=== PATIENT | female | born 1950 | race Hispanic/Latino ===

== ENCOUNTER 2018-09-09 20:05 | Emergency (ER) | payer MEDICARE ==
--- NOTE | 2018-09-09 21:12 | RAD ---
PORTABLE UPRIGHT FRONTAL CHEST RADIOGRAPH 09/09/18 COMPARISON: 09/25/16 HISTORY: Chest pain and palpitations. FINDINGS: Postoperative ankles overlie bilateral humeral heads. No pneumothorax, pleural fluid, focal consolida tion, or alveolar edema. IMPRESSION: No acute findings. POS: OLIVERH
[2018-09-09 21:13] LABS: Hemoglobin 15.5 g/dL (12.0-16.0); Mean Corpuscular HGB CONC 33.6 g/dL (32.0-36.0); Mean Corpuscular Hemoglobin 35.1 pg (27.0-31.0); Mean Platelet Volume 7.6 fL (7.4-10.4); Platelet Count 187 thou/uL (130-400); RBC Distribution Width 11.7 % (11.5-14.5); Red Blood Cell (RBC) Count 4.42 mill/uL (4.20-5.40); White Blood Cell (WBC) Count 7.9 thou/uL (4.8-10.8)
[2018-09-09 21:25] LABS: #Basophils 0.1 thou/uL (0.0-0.2); #Eosinphils 0.1 thou/uL (0.0-0.7); #Lymphocytes 2.7 thou/uL (1.20-3.40); #Monocytes 0.7 thou/uL (0.11-0.59); #Neutrophils 4.3 thou/uL (1.40-6.50); %Basophils 1.3 % (0.0-1.0); %Eosinophils 1.2 % (0.0-10.0); %Lymphocytes 33.9 % (21.0-51.0); %Monocytes 9.4 % (0.0-10.0); %Neutrophils 54.3 % (42.0-75.0)
[2018-09-09 21:32] LABS: ALT (SGPT) 68 U/L (8-55); AST (SGOT) 39 U/L (5-34); Albumin 4.1 g/dL (3.4-4.8); Alkaline Phosphatase 85 U/L (40-150); Anion Gap 14 mmol/L (10-20); BUN (Urea Nitrogen) 9 mg/dL (9.8-20.1); Bilirubin, Total 0.4 mg/dL (0.2-1.2); CK (CPK) 112 U/L (29-168); Calc. Creatinine Clearance 0 mL/min (70-130); Calcium 9.3 mg/dL (7.8-10.44); Carbon Dioxide 23 mmol/L (23-31); Chloride 106 mmol/L (98-107); Estimated GFR-MDRD 80; Globulin 2.9 g/dL (2.4-3.5); Glucose 92 mg/dL (80-115); Potassium 3.3 mmol/L (3.5-5.1); Sodium 140 mmol/L (136-145)
== END 2018-09-09 22:31 | disposition home or self-care (01) ==
LOC: ERS 20:05
DX: I10 Essential (primary) hypertension (principal)
CPT/HCPCS: 36415; 71045; 80053; 82550; 83880; 84443; 84484; 85025; 85379; 93005

== ENCOUNTER 2020-01-22 05:04 | Observation (INO) | payer MEDICARE ==
[2020-01-22 05:43] LABS: #Basophils 0.1 thou/uL (0.0-0.2); #Lymphocytes 1.3 thou/uL (1.20-3.40); #Monocytes 0.2 thou/uL (0.11-0.59); #Neutrophils 4.5 thou/uL (1.40-6.50); %Eosinophils 0.6 % (0.0-10.0); %Lymphocytes 21.2 % (21.0-51.0); %Monocytes 3.5 % (0.0-10.0); %Neutrophils 73.8 % (42.0-75.0); Mean Corpuscular Hemoglobin 34.6 pg (27.0-31.0); Mean Platelet Volume 8.2 fL (7.4-10.4); Platelet Count 177 thou/uL (130-400); RBC Distribution Width 12.2 % (11.5-14.5); Red Blood Cell (RBC) Count 4.62 mill/uL (4.20-5.40); White Blood Cell (WBC) Count 6.1 thou/uL (4.8-10.8)
[2020-01-22 06:05] LABS: ALT (SGPT) 59 U/L (8-55); AST (SGOT) 42 U/L (5-34); Albumin 4.5 g/dL (3.4-4.8); Alkaline Phosphatase 88 U/L (40-110); Anion Gap 14 mmol/L (10-20); BUN (Urea Nitrogen) 9 mg/dL (9.8-20.1); Bilirubin, Total 0.5 mg/dL (0.2-1.2); Calc. Creatinine Clearance 0 mL/min (70-130); Calcium 9.1 mg/dL (7.8-10.44); Carbon Dioxide 27 mmol/L (23-31); Chloride 104 mmol/L (98-107); Estimated GFR-MDRD 83; Glucose 135 mg/dL (80-115); Lipase 31 U/L (8-78); Protein, Total 7.5 g/dL (6.0-8.3); Sodium 141 mmol/L (136-145)
[2020-01-22] MEDS ORDERED: Morphine 4 MG/ML VIAL ONE (06:12)
[2020-01-22] MEDS ORDERED: Ondansetron ODT 4 MG TAB ONE (06:13)
[2020-01-22] MEDS ORDERED: Aspirin Chewable 81 MG TAB ONE (06:13)
[2020-01-22] MEDS ORDERED: Nitroglycerin 2% Ointment 1 INCH/1 GM Packet ONE (06:13)
--- NOTE | 2020-01-22 08:07 | RAD ---
RADIOGRAPH CHEST 1 VIEW: DATE: 01/22/2020 HISTORY: 69-year-old female with acute chest pain FINDINGS: There are no airspace densities, pulmonary edema, pneumothorax, or cardiomegaly. The lateral costophr enic angles are sharp. IMPRESSION: No acute cardiopulmonary findings.
[2020-01-22 09:02] LABS: Troponin I 0.017 ng/mL (< 0.028)
[2020-01-22] MEDS ORDERED: Enoxaparin Sodium 40 MG/0.4 ML SYRINGE SC SCH (10:30)
[2020-01-22] MEDS ORDERED: Morphine 2 MG/ML SYRINGE SLOW IVP PRN (11:18)
[2020-01-22 11:44] VITALS: BMI 36.0
[2020-01-22 12:27] LABS: Troponin I 0.022 ng/mL (< 0.028)
[2020-01-22] MEDS ORDERED: Nitroglycerin 0.4 MG TAB (25 Tab Bottle) PO PRN (12:43)
[2020-01-22] MEDS ORDERED: Acetaminophen 325 MG TAB PO PRN (12:45)
[2020-01-22 14:04] LABS: Hemoglobin A1c 5.8 % (4.0-6.0)
[2020-01-22] MEDS: Nitroglycerin 2% Ointment 1 INCH/1 GM Packet TOP SCH ×2 (14:04→21:06)
--- NOTE | 2020-01-22 14:16 | HP ---
PRIMARY CARE PHYSICIAN: Dr. Villasenor. CHIEF COMPLAINT: Chest pain, nausea, and vomiting. HISTORY OF PRESENT ILLNESS: The patient is a 69-year-old female with a past medical history significant for chronic back pain and obesity, who presents to the ER for the above-noted complaint. The patient reports mowing her yard late in the afternoon yesterday, coming inside, eating dinner, then developing the sudden onset of nausea at about 2100 hours after eating, so she went to lay down to see if the nausea would resolve. She later awoke approximately 2 hours later at 2330 hours with progressively worsening nausea with some vomiting. She reports that she vomited several times and she had some dry heaving. She also reports developing acute onset of right-sided chest pain. She describes it as stabbing and sharp, and constant. It was exacerbated with movements, relieved by nothing. No other associated symptoms. She denies heart palpitations and lightheadedness, or swelling to lower extremities. She denies any shortness of breath, wheezing or cough. She remained in bed for several hours, hoping that the chest pain would resolve. Ultimately, at 0400 hours, her sister woke up, whom she lives with, and decided to take her into the emergency room. In the emergency room, an EKG showed sinus rhythm with some PACs, no ST elevations. Vital signs were stable. Afebrile, no respiratory distress. Initial troponin was 0.21 the second was 0.017. Chest x-ray was negative. Her D-dimer was less than 0.27. All of her electrolytes were within normal limits and her CBC was unremarkable. She was given an inch of nitroglycerin paste and a full dose of aspirin, morphine and Zofran, and her symptoms resolved. ALLERGIES: THE PATIENT REPORTS NO KNOWN ALLERGIES. HOME MEDICATIONS: The patient takes no home medications. PAST SURGICAL HISTORY: 1. Right rotator cuff. 2. Left rotator cuff. 3. Hysterectomy. SOCIAL HISTORY: The patient lives with her sister in [place]. She is retired. She denies any history of smoking, illicit drug use or alcohol intake. FAMILY HISTORY: The patient reports a family history positive for atrial fibrillation and angina. REVIEW OF SYSTEMS: All review of systems are negative unless otherwise noted in the HPI. PHYSICAL EXAMINATION: VITAL SIGNS: Temperature 98.5, blood pressure 148/72, pulse 81, respirations 17 , and SpO2 96 on room air. Pain was 10/10. CONSTITUTIONAL: The patient is alert and oriented to person, place, and time. She is in no acute distress. She appears nontoxic. She is obese in nature. HEAD: Atraumatic and normocephalic. EYES: PERRLA. Extraocular muscles intact. Sclerae nonicteric. ENT: Bilateral nares patent. Oropharynx is clear. Moist mucous membranes. Uvula is midline. NECK: Supple. Trachea midline. No JVD. RESPIRATORY: Respirations are even and nonlabored on room air. No wheezes, rhonchi or rales. CARDIOVASCULAR: S1 and S2 appreciated. Regular rate and rhythm. No murmurs, rubs or gallops. ABDOMEN: Abdomen is soft and nontender. Active bowel sounds. No guarding. No rigidity. Negative Waller sign. BACK: Full range of motion. No central spinous tenderness. No CVA tenderness. EXTREMITIES: Upper extremities bilaterally, full range of motion. Strength within normal limits. Palpable radial and ulnar pulses. Brisk cap refill. No swelling. Lower extremities; full range of motion. Strength 5/5 in the power scale. No swelling. Palpable pedal pulses and brisk cap refill. NEUROLOGIC: The patient has GCS of 15, able to follow commands. Oriented to person, place, and time. PSYCHIATRIC: The patient has no psychiatric history. Denies any suicidal or homicidal ideation. She has normal affect. LABS AND IMAGING: EKG was sinus rhythm with PACs. Chest x-ray was negative. D-dimer was then less than 0.27. Initial trops were 0.21 and 0.017 respectively. Sodium 141, potassium 4.0, BUN 9, creatinine 0.70, GFR of 83, and glucose was elevated at 135. White blood cells were 6.1, hemoglobin was 16, hematocrit was 47, platelets were 177. IMPRESSION AND PLAN: 1. Chest pain. We will admit the patient to telemetry for observation status. Expected length of stay is less than 2 midnights. The patient's HEART score is 4. Initial trops were negative. Chest x-ray was negative with a D-dimer of less than 0.27. Electrolytes were unremarkable. CBC was unremarkable. Pain was resolved upon examination. We will keep the patient n.p.o. The plan is to order a cardiac stress test with echo. We will trend the remaining troponin out. We will order a TSH, mag, BNP, and check a urine. We will continue aspirin and nitroglycerin paste as well as Zofran p.r.n. We will also obtain a gallbladder ultrasound. 2. Nausea and vomiting. The patient's symptoms are currently resolved. LFTs and lipase were unremarkable. She is in no acute distress. Physical exam was unremarkable for any abdominal pathology. We will schedule Pepcid. We will obtain a right upper quadrant ultrasound. 3. Elevated blood glucose. Blood sugar was 135 on presentation. We will order hemoglobin A1c. 4. Chronic back pain, stable. We will administer p.r.n. medications as needed. 5. Obesity with a BMI of 36.1. 6. We will consult walking program, Lovenox for DVT prophylaxis, Pepcid for GI prophylaxis. The patient is a full code. The MPOA is her son at [employer]. His number is [phone]. Discussed the case with Dr. Hernandez. Job ID: [id number] MTDD
[2020-01-22] MEDS ORDERED: Ondansetron PF 4 MG/2 ML Vial IVP PRN (15:19)
[2020-01-22] MEDS: Famotidine 20 MG TAB PO SCH (21:05)
[2020-01-23 03:33] VITALS: TEMP 98.4
[2020-01-23 04:29] LABS: #Basophils 0.1 thou/uL (0.0-0.2); #Eosinphils 0.1 thou/uL (0.0-0.7); #Lymphocytes 2.3 thou/uL (1.20-3.40); #Monocytes 0.5 thou/uL (0.11-0.59); #Neutrophils 2.8 thou/uL (1.40-6.50); %Basophils 1.6 % (0.0-1.0); %Eosinophils 1.8 % (0.0-10.0); %Lymphocytes 39.8 % (21.0-51.0); %Monocytes 8.3 % (0.0-10.0); %Neutrophils 48.5 % (42.0-75.0); Mean Corpuscular HGB CONC 33.6 g/dL (32.0-36.0); Mean Corpuscular Hemoglobin 34.4 pg (27.0-31.0); Mean Platelet Volume 8.3 fL (7.4-10.4); Platelet Count 169 thou/uL (130-400); RBC Distribution Width 12.5 % (11.5-14.5); Red Blood Cell (RBC) Count 4.36 mill/uL (4.20-5.40); White Blood Cell (WBC) Count 5.8 thou/uL (4.8-10.8)
[2020-01-23 04:51] LABS: Anion Gap 11 mmol/L (10-20); BUN (Urea Nitrogen) 8 mg/dL (9.8-20.1); Calc. Creatinine Clearance 108 mL/min (70-130); Calcium 8.8 mg/dL (7.8-10.44); Carbon Dioxide 28 mmol/L (23-31); Cardiac Risk 2.6 (Less than 4.5); Chloride 104 mmol/L (98-107); Cholesterol 150 mg/dl (< 200 Desired); Estimated GFR-MDRD Greater than 90; Glucose 104 mg/dL (80-115); HDL Cholesterol 58 mg/dL (>60 Neg Risk); LDL Cholesterol, Calculated 71 mg/dL; Potassium 3.4 mmol/L (3.5-5.1); Sodium 140 mmol/L (136-145); Triglycerides 106 mg/dL (Less than 150)
[2020-01-23] MEDS: Nitroglycerin 2% Ointment 1 INCH/1 GM Packet TOP SCH (05:55)
[2020-01-23] MEDS ORDERED: Potassium Chloride 20 MEQ TAB PO SCH (07:00)
[2020-01-23] MEDS: Famotidine 20 MG TAB PO SCH (08:07)
--- NOTE | 2020-01-23 08:34 | ULT ---
GALLBLADDER ULTRASOUND: Date: 01/23/2020 HISTORY: Right upper quadrant pain. FINDINGS: Real-time imaging of the right upper quadrant shows a normal appearing gallbladder. The common duct i s in the 5 mm range. The liver shows no focal abnormalities. There is slight increased echogenicity. Right kidney is normal in size and not obstructed. The pancreas is obscured. IMPRESSION: Essentially unremarkable right upper quadrant ultrasound. Suggestion of perhaps some slight fatty madhav nge to the liver. POS: [facility]DI
[2020-01-23] MEDS ORDERED: Enoxaparin Sodium 40 MG/0.4 ML SYRINGE SC SCH (09:00)
[2020-01-23] MEDS ORDERED: Aspirin 325 mg Enteric Coated Tablet PO SCH ×2 (09:00)
[2020-01-23] MEDS ORDERED: Aspirin 81 mg Enteric Coated Tablet PO SCH (09:00)
[2020-01-23] MEDS ORDERED: ADENOSINE 60 MG/20 ML VIAL ONE (09:59)
--- NOTE | 2020-01-23 11:13 | NM ---
MYOCARDIAL PERFUSION SCAN WITH SPECT IMAGING: HISTORY: Chest pain. History of hypertension. TECHNIQUE/FINDINGS: Examination performed using 32.8 mCi 99m-technetium sestamibi on the stress and 27 mCi on the resting images. This shows a fairly normal distribution of radiopharmaceutical. No signs of ischemia or scar . WALL MOTION: There is symmetric contractility to the ventricle. LEFT VENTRICULAR EJECTION FRACTION: The calculated left ventricular ejection fraction is 75%. IMPRESSION: Unremarkable myocardial perfusion scan. POS: [facility]
[2020-01-23 11:53] LABS: RBC/HPF Greater than 50 HPF (0-3)
[2020-01-23 11:55] LABS: WBC/HPF 0-3 HPF (0-3)
[2020-01-23 11:56] LABS: Bacteria/HPF None Seen HPF (None Seen)
[2020-01-23 12:07] VITALS: BP 125/61
--- NOTE | 2020-01-23 19:23 | DIS ---
DATE OF ADMISSION: 01/22/2020 DATE OF DISCHARGE: 01/23/2020 CHIEF COMPLAINT: Sharp atypical chest pain. HISTORY OF PRESENT ILLNESS: The patient is a 69-year-old female with no significant medical history, who presents to the hospital with complaints of sharp chest pain x1 day. The patient was admitted in for chest pain rule out. Her D-dimer was normal. Her troponin x3 was normal. Her BNP was normal. At this time, she underwent a stress test, which indicated EF of 75%, unremarkable otherwise stress test. She also had an abdominal ultrasound, which indicated fatty liver and I have notified her about that. I have asked her to try and control it with diet, exercise, and weight loss. She also had an echocardiogram, which indicated an EF 50% to 55%, otherwise essentially normal, just some moderate aortic regurgitation noted. However, the patient does not have any shortness of breath. PHYSICAL EXAMINATION: VITAL SIGNS: Temperature 98.4, pulse 78, respiratory rate 16, oxygen saturation 95% on room air, and blood pressure 125/61. GENERAL: She is awake, alert, and oriented x3. Does not appear in distress. CV: S1 and S2 with no murmurs, rubs, or gallops. MEDICATIONS: She takes none. I have told her to follow up with her primary. I discussed all the results with her. Discussed that she needs to try and lose weight, diet, and exercise for fatty liver and will need to follow up with her primary care in regard to that. Job ID: [id number]
== END 2020-01-23 12:25 | disposition home or self-care (01) ==
LOC: ERS 05:04 → 2NO 11:15
PROVIDERS: ADMIT Internal Medicine; ATTEND Internal Medicine
DX: R07.89 Other chest pain (principal); R11.2 Nausea with vomiting, unspecified; G89.29 Other chronic pain; M54.9 Dorsalgia, unspecified; R73.9 Hyperglycemia, unspecified; R10.11 Right upper quadrant pain; I35.1 Nonrheumatic aortic (valve) insufficiency; E66.9 Obesity, unspecified; Z68.36 Body mass index [BMI] 36.0-36.9, adult
CPT/HCPCS: 71045; 76705; 78452; 80048; 80061; 81015; 83036; 83690; 83735; 83880; 84484 ×2; 85025; 85379; 93005; 93017; 93306; 94760 ×2; 96372 ×2; 96374; 96375; 96376; 97139 ×2; 99285; A9500; G0378 ×3; 36415; 80053; 84443; J0153; J1650; J2270; J2405; Q0162

== ENCOUNTER 2020-01-28 15:35 | Observation (INO) | payer MEDICARE ==
[2020-01-28 16:30] LABS: #Lymphocytes 1.1 thou/uL (1.20-3.40); #Monocytes 0.2 thou/uL (0.11-0.59); %Basophils 0.7 % (0.0-1.0); %Eosinophils 0.2 % (0.0-10.0); %Lymphocytes 17.5 % (21.0-51.0); %Monocytes 3.7 % (0.0-10.0); %Neutrophils 77.9 % (42.0-75.0); Hemoglobin 16.5 g/dL (12.0-16.0); Mean Corpuscular HGB CONC 34.2 g/dL (32.0-36.0); Mean Corpuscular Hemoglobin 35.1 pg (27.0-31.0); Mean Platelet Volume 7.7 fL (7.4-10.4); Platelet Count 167 thou/uL (130-400); RBC Distribution Width 12.4 % (11.5-14.5); Red Blood Cell (RBC) Count 4.71 mill/uL (4.20-5.40); White Blood Cell (WBC) Count 6.5 thou/uL (4.8-10.8)
[2020-01-28 16:56] LABS: ALT (SGPT) 56 U/L (8-55); AST (SGOT) 42 U/L (5-34); Albumin 4.4 g/dL (3.4-4.8); Alkaline Phosphatase 81 U/L (40-110); Anion Gap 15 mmol/L (10-20); BUN (Urea Nitrogen) 8 mg/dL (9.8-20.1); Bilirubin, Total 0.5 mg/dL (0.2-1.2); Calc. Creatinine Clearance 0 mL/min (70-130); Calcium 9.6 mg/dL (7.8-10.44); Carbon Dioxide 24 mmol/L (23-31); Chloride 103 mmol/L (98-107); Estimated GFR-MDRD 81; Globulin 3.3 g/dL (2.4-3.5); Glucose 115 mg/dL (80-115); Lipase 28 U/L (8-78); Potassium 3.8 mmol/L (3.5-5.1); Protein, Total 7.7 g/dL (6.0-8.3); Sodium 138 mmol/L (136-145)
[2020-01-28] MEDS ORDERED: Fentanyl 100 MCG/2 ML VIAL ONE (18:05)
[2020-01-28] MEDS ORDERED: Aspirin Chewable 81 MG TAB ONE (19:29)
[2020-01-28 19:51] LABS: Bilirubin Negative (Negative); Blood, Urine Negative (Negative); Clarity Clear (Clear); Glucose, Urine (Dipstick) Normal (Negative); Leukocyte Negative Leu/uL (Negative); Nitrite Negative (Negative); Protein, Urine (Dipstick) 10 mg/dL (Neg-Trace); Urobilinogen Normal mg/dL (Less than 2)
[2020-01-28] MEDS ORDERED: Ondansetron PF 4 MG/2 ML Vial ONE ×2 (20:13→22:40)
[2020-01-28 21:09] LABS: Troponin I 0.033 ng/mL (< 0.028)
--- NOTE | 2020-01-28 21:13 | RAD ---
PA CHEST: 01/28/20 HISTORY: Chest pain. COMPARISON: 01/22/20 Hazy density in the medial right lung base obscures the right heart border and infrahilar region. Foc al infiltrate or atelectasis cannot be excluded. Recommend lateral view of the chest for correlation. The lungs are otherwise clear and unchanged. Heart size is normal. IMPRESSION: Hazy opacity in the medial right lung base obscuring the right heart border. Recommend follow-up. Sug gest lateral view of chest for correlation. POS: AGW
[2020-01-28] MEDS ORDERED: Morphine 4 MG/ML VIAL ONE (22:39)
[2020-01-28] MEDS ORDERED: Nitroglycerin 0.4 MG TAB (25 Tab Bottle) PO PRN (23:08)
[2020-01-28] MEDS ORDERED: Calcium Carbonate 500 MG ChewTAB PO PRN (23:12)
[2020-01-28] MEDS ORDERED: Senokot S 8.6-50 MG TAB PO PRN (23:12)
[2020-01-28] MEDS ORDERED: Acetaminophen 325 MG TAB PO PRN (23:12)
[2020-01-28] MEDS ORDERED: Ondansetron ODT 4 MG TAB PO PRN (23:12)
[2020-01-28] MEDS ORDERED: Ondansetron PF 4 MG/2 ML Vial IVP PRN (23:12)
[2020-01-28] MEDS ORDERED: HYDROcodone/Acetaminophen 5/325 mg Tablet PO PRN ×2 (23:12)
[2020-01-28] MEDS ORDERED: Sodium Chloride 0.9% (PF) 10 ML VIAL FS PRN (23:22)
[2020-01-28] MEDS ORDERED: Nitroglycerin 2% Ointment 1 INCH/1 GM Packet TOP SCH (23:30)
[2020-01-28 23:58] VITALS: BMI 33.6
[2020-01-28] MEDS ORDERED: Pantoprazole 40 MG VIAL IVP SCH (23:59)
[2020-01-29] MEDS: Sodium Chloride 0.9% 1,000 ML IV SCH ×3 (00:18→21:02)
[2020-01-29 00:21] LABS: CKMB 1.5 ng/mL (0-6.6)
--- NOTE | 2020-01-29 00:59 | HP ---
PRIMARY CARE PROVIDER: Dr. Villasenor. CHIEF COMPLAINT: Chest pain. HISTORY OF PRESENT ILLNESS: The patient is a 69-year-old female with a past medical history significant for chronic back pain, prediabetes, and obesity, who presents to the ER for the above complaint. The patient reports acute onset of right-sided chest pain at approximately 0400 hours in the morning while lying in bed. She describes the pain as sharp and stabbing. It is constant. It is exacerbated and relieved by nothing. It is associated with dry heaves and nausea. She denies any heart palpitations, lightheadedness, or lower extremity swelling. She denies any cough or shortness of breath. She denies any recent fever or sore throat. She denies any pyrosis, belching, or bloating. She denies any abdominal pain or diarrhea. She denies any dysuria. The patient was recently discharged from our ER last week on 2019, for similar complaints. She underwent a complete cardiac workup. Her troponins were negative. Her D-dimer was within normal limits, and her BNP was within normal limits. Nuc Med cardiac stress test was negative for ischemia, and her echocardiogram showed an EF of 50% to 55% with some moderate aortic regurgitation. Gallbladder ultrasound did show fatty liver. She reports that after discharge, she was in her normal health until this morning when her symptoms started again. So for those reasons , she came to the ER. In the ER, vital signs were taken and she was afebrile, mildly hypertensive with normal respirations and normal SpO2 saturations. Her EKG was sinus rhythm, 77, no ST elevations. Her initial troponin was 0.021. Her second troponin was 0.033. Her CK was 92. Chest x-ray did show some hazy opacities in medial right lung base. She had a lipase of 28. Her AST was 42 and her ALT was 56 with a normal bilirubin, and her UA was unremarkable. She was given 1 L of normal saline, aspirin, and Zofran. Her pain is improved, but ongoing. PAST MEDICAL HISTORY: 1. Chronic back pain. 2. Prediabetes with a hemoglobin A1c of 5.8%. 3. Obesity, BMI 36.1. PAST SURGICAL HISTORY: 1. Hysterectomy. 2. Right rotator cuff. 3. Left rotator cuff. SOCIAL HISTORY: The patient lives with her sister in [place]. She is retired. She denies any history of smoking, illicit drug use, or alcohol intake. FAMILY HISTORY: Positive or contributory for angina and atrial fibrillation. ALLERGIES: NO KNOWN ALLERGIES. HOME MEDICATIONS: The patient takes no home medications. PHYSICAL EXAMINATION: VITAL SIGNS: Temperature 98.8 oral, blood pressure 152/72, heart rate 81, respirations 16, and SpO2 of 96% on room air. CONSTITUTIONAL: The patient appears mildly uncomfortable. Nontoxic. She is alert and oriented to person, place, and time. HEAD: Atraumatic, normocephalic. EYES: PERRLA. Extraocular muscles are intact. Sclerae are nonicteric. ENT: Nares are patent bilaterally. Oropharynx is clear. Uvula midline. Moist mucous membranes. NECK: Supple. Trachea midline. No JVD. No cervical lymphadenopathy. RESPIRATORY/CHEST: Respirations are even and nonlabored. No rhonchi, wheezes, or rales auscultated. CARDIAC: S1 and S2 appreciated. No murmurs, rubs, or gallops. Regular rate and rhythm. ABDOMEN: Soft, nontender, nondistended. Active bowel sounds. No guarding. No rigidity. No rebound tenderness. Negative Waller sign. Negative Rovsing sign. No abdominal bruits auscultated. UPPER EXTREMITIES: Normal range of motion. Normal strength. Palpable radial pulses. Brisk cap refill. LOWER EXTREMITIES: Normal range of motion. Normal strength. Palpable pedal pulses bilaterally. No swelling. NEURO: The patient is alert and oriented to person, place, and time with normal affect. GCS of 15. PSYCHIATRIC: Suicidal and homicidal ideation. LABORATORY DATA AND RADIOLOGY DATA: EKG; normal sinus rhythm, 77, no ST elevations. Troponin; initial 0.021, second was 0.033. CK was 92. Sodium 138, potassium 3.8, chloride 103, carbon dioxide 24, BUN 8, creatinine 0.71, GFR 81, glucose 115, calcium 9.6, total bilirubin 0.5, AST 42, ALT 56, alkaline phosphatase 81, and albumin 4.4. WBC 6.5, hemoglobin 16.5, hematocrit 48.2, and platelets 167. UA was unremarkable. Chest x-ray; hazy opacity in the medial right lung base obscuring the right heart border. Recommend followup. Suggest lateral view of chest for correlation. IMPRESSION AND PLAN: 1. Chest pain. Admit the patient to telemetry floor on observation status. Expected length of stay, less than two midnights. On presentation, vital signs were stable. Mildly elevated blood pressure. EKG, normal sinus rhythm. Second troponin determined at 0.033. Chest x-ray did show some hazy opacities in medial right lung base. The patient's HEART score is at 3, Wells score is at 0. I was unable to reproduce her pain with palpation. The patient was recently discharged from the hospital after cardiac workup, unremarkable Nuc Med cardiac stress test and echocardiogram had 50% to 55% ejection fraction with some moderate aortic regurgitation and abdominal ultrasound did show fatty liver. We will trend troponins, order a BNP, Mag, and TSH. If troponins continue to elevate, we will consult Cardiology. We will continue aspirin. We will give nitroglycerin paste scheduled. Will get PA/LAT CXR. 2. Prediabetes. The patient had a recent hemoglobin A1c of 5.8, presented with a glucose of 115. 3. Obesity, BMI of 36.1. 4. Lovenox for deep venous thrombosis prophylaxis. Protonix for gastrointestinal prophylaxis. The patient is a full code. Medical power of consumer attorney is Davi Sunshine, her son, number is [phone]. 5. Discussed the case with Dr. Gutierrez. Job ID: [id number]
[2020-01-29 03:21] LABS: #Basophils 0.1 thou/uL (0.0-0.2); #Lymphocytes 2.1 thou/uL (1.20-3.40); #Monocytes 0.6 thou/uL (0.11-0.59); #Neutrophils 3.9 thou/uL (1.40-6.50); %Basophils 1.2 % (0.0-1.0); %Eosinophils 0.7 % (0.0-10.0); %Lymphocytes 31.2 % (21.0-51.0); %Monocytes 8.8 % (0.0-10.0); %Neutrophils 58.2 % (42.0-75.0); Hemoglobin 15.2 g/dL (12.0-16.0); Mean Corpuscular HGB CONC 34.4 g/dL (32.0-36.0); Mean Corpuscular Hemoglobin 35.4 pg (27.0-31.0); Platelet Count 172 thou/uL (130-400); RBC Distribution Width 12.5 % (11.5-14.5); Red Blood Cell (RBC) Count 4.28 mill/uL (4.20-5.40); White Blood Cell (WBC) Count 6.6 thou/uL (4.8-10.8)
[2020-01-29 03:48] LABS: ALT (SGPT) 40 U/L (8-55); AST (SGOT) 29 U/L (5-34); Albumin 3.9 g/dL (3.4-4.8); Alkaline Phosphatase 67 U/L (40-110); Anion Gap 12 mmol/L (10-20); BUN (Urea Nitrogen) 7 mg/dL (9.8-20.1); Bilirubin, Total 0.4 mg/dL (0.2-1.2); Calc. Creatinine Clearance 108 mL/min (70-130); Calcium 8.5 mg/dL (7.8-10.44); Carbon Dioxide 24 mmol/L (23-31); Chloride 105 mmol/L (98-107); Estimated GFR-MDRD Greater than 90; Globulin 2.8 g/dL (2.4-3.5); Glucose 98 mg/dL (80-115); Potassium 3.4 mmol/L (3.5-5.1); Protein, Total 6.7 g/dL (6.0-8.3); Sodium 138 mmol/L (136-145)
[2020-01-29] MEDS: Nitroglycerin 2% Ointment 1 INCH/1 GM Packet TOP SCH ×2 (05:01→18:57)
[2020-01-29 06:13] LABS: Troponin I 0.022 ng/mL (< 0.028)
--- NOTE | 2020-01-29 08:52 | RAD ---
PA AND LATERAL VIEWS CHEST: HISTORY: Chest pain. COMPARISON: Comparison is made with the exam of the previous day. FINDINGS: The heart size is normal. The lungs are expanded without focal areas of consolidation, pneumothorace s, or pleural effusions. There are degenerative changes in the spine. IMPRESSION: No radiographic evidence of acute cardiopulmonary process. POS: OLIVERH
[2020-01-29] MEDS ORDERED: Pantoprazole 40 MG VIAL IVP SCH ×2 (09:00→21:00)
[2020-01-29] MEDS: Aspirin 81 mg Enteric Coated Tablet PO SCH (09:01)
--- NOTE | 2020-01-29 13:32 | PDOC.HOSPP ---
- Subjective Encounter Date: 01/29/20 Encounter Time: 13:20 Subjective: Ms. Troy was seen today in follow-up of chest pain. She says she feels much better today. She however is concerned about the chest pain. She says it is more on the right side, and radiates to her back. She admits to having some heartburn off and on certain foods will upset her stomach like tomatoes, and seaman. She denies any heavy lifting .She says her sister of bile duct cancer. - Objective Vital Signs & Weight: Vital Signs (12 hours) Temp Pulse Resp BP Pulse Ox 01/29/20 11:31 98.5 F 68 18 107/53 L 95 01/29/20 08:59 98.3 F 68 20 120/71 97 01/29/20 04:43 98.1 F 71 16 139/62 93 L Weight Weight 183 lb 15.965 oz I&O: 01/28/20 01/29/20 01/30/20 06:59 06:59 06:59 Intake Total 1460 Balance 1460 Result Diagrams: 01/29/20 02:43 01/29/20 02:42 Hospitalist ROS - Medication Medications: Active Medications Generic Name Dose Route Start Last Admin Trade Name Freq PRN Reason Stop Dose Admin Hydrocodone Bitart/Acetaminophen 1 tab 01/28/20 23:12 01/29/20 05:08 [place] 5/325 PO 1 tab Q4H PRN Administration Moderate Pain (4-6) Aspirin 81 mg 01/29/20 09:00 01/29/20 09:01 Ecotrin PO 81 mg DAILY JODI Administration Sodium Chloride 1,000 mls @ 75 mls/hr 01/28/20 23:15 01/29/20 00:18 Normal Saline 0.9% IV 1,000 mls .[id number] JODI Administration Nitroglycerin 0.5 inch 01/29/20 06:00 01/29/20 05:01 Nitro-Bid 2% Ointment TOP 0.5 inch Q8HR JODI Administration Sodium Chloride 10 ml 01/29/20 09:00 01/29/20 09:31 Flush - Normal Saline IVF Not Given Q12HR JODI - Exam Eye: PERRL, anicteric sclera Heart: RRR, no murmur, no gallops, no rubs, normal peripheral pulses Respiratory: CTAB, no wheezes, no rales, no ronchi, normal chest expansion, no tachypnea Gastrointestinal: soft, non-tender, non-distended, normal bowel sounds, no palpable masses, no hepatomegaly Extremities: no cyanosis, no edema Hosp A/P (1) Chest pain Code(s): R07.9 - CHEST PAIN, UNSPECIFIED Status: Acute - Plan * Chest pain- ? etiology. Her symptoms are suspicious for gallbladder disease. She had a recent US which was negative for stones * Will check a HIDA scan
[2020-01-29] MEDS ORDERED: Nitroglycerin 2% Ointment 1 INCH/1 GM Packet TOP SCH (19:00)
--- NOTE | 2020-01-29 20:07 | NM ---
EXAM: NUCLEAR MEDICINE HIDA SCAN: 01/29/20 HISTORY: Chest pain. COMPARISON: None. TECHNIQUE: Patient was pretreated 30 minutes prior to imaging with 1.6 micrograms of CCK intravenously. The patient was administered 4.8 millicuries of technetium 99m Mebrofenin intravenously. Gallbladder ejection fraction was determined after the patient was administered 1.6 micrograms of CCK over a 30 m inute infusion. FINDINGS: Appropriate distribution and upright of the radiotracer in the hepatic parenchyma. Appropriate excret ion from the common bile duct into the small bowel loops. There is localization with radiotracer in t he gallbladder as early as 8 minutes. Gallbladder ejection fraction: 94%. IMPRESSION: No scintigraphic evidence of acute cholecystitis. POS: PPP
[2020-01-30] MEDS: Nitroglycerin 2% Ointment 1 INCH/1 GM Packet TOP SCH ×2 (00:44→10:34)
[2020-01-30] MEDS: Aspirin 81 mg Enteric Coated Tablet PO SCH (07:56)
[2020-01-30 11:46] VITALS: BP 117/60; TEMP 97.8
[2020-01-30] MEDS: Sodium Chloride 0.9% 1,000 ML IV SCH (14:46)
[2020-01-30] MEDS ORDERED: Atracurium 100 MG/10 ML VIAL ONE (15:37)
--- NOTE | 2020-01-30 16:26 | CT ---
EXAM: CT ANGIOGRAM CHEST WITH 3D RENDERING: CT ANGIOGRAM ABDOMEN WITH 3D RENDERIN01/30/20 HISTORY: Anterior chest pain, radiating to back. FINDINGS: some nodular focal pleural or pleural based thickening in the left apex medially and in the right ape x posteriorly. Minimal linear increased markings in the medial aspect of the right lower lobe adjacen t to the vertebral column possibly chronic. No pleural effusion or pericardial effusion. No CT eviden ce for aortic dissection. No CT evidence for acute pulmonary embolism. 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 No mediastinal mass or adenopathy. 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 There are some sc attered atherosclerotic plaques. No evidence for abdominal aortic aneurysm. No evidence for significa nt stenosis using NASCET criteria. There is evidence for an aberrant right subclavian artery travelin g posterior to the esophagus. IMPRESSION: No evidence for thoracic or abdominal aortic aneurysm or dissection. Aberrant right subclavian artery. Biapical pleural and pleural based thickening, probably related to scarring. Evidence for right renal artery aneurysm. Other findings as above. POS: RRE
--- NOTE | 2020-01-30 21:24 | DIS ---
DATE OF ADMISSION: 01/28/2020 DATE OF DISCHARGE: 01/30/2020 DISCHARGE DIAGNOSES: As of the followin. Atypical chest pain. 2. Fatty liver. 3. Right renal artery aneurysm. HOSPITAL COURSE: The patient is a very pleasant 69-year-old female, who presents to the hospital with chest pain. The patient had a similar pain earlier this month where she was worked up for a cardiac recent stress test, which was negative. She also had a right upper quadrant ultrasound, which indicated a fatty liver. At this time, she was discharged home. Her D-dimer at that time was negative. The patient comes back in again with sharp chest pain. At this time, she underwent a HIDA scan, which was normal. She also this time had negative troponins and her BNP was normal. Thyroid was normal. She then underwent a CT dissection protocol to rule out since she complained of pain to her right-sided chest wall radiating to her back. At this time, it indicated evidence of right renal artery aneurysm about 0.8 x 1.4 cm diameter. This was communicated with the patient and the patient is to follow up with her primary. She also had some biapical pleural-based thickening. PHYSICAL EXAMINATION: VITAL SIGNS: Temperature 97.8, 66, 16, 97% on room air, 117/60. GENERAL: She is awake, alert, and oriented. She does not appear in distress CV: S1, S2 present. No murmurs, rubs, or gallops. HOME MEDICATIONS: Zofran and Benadryl as needed. ASSESSMENT AND PLAN: The patient states that when she gets severe pain, she gets nauseated. We did talk to her about fatty liver. She wants to give diet, exercise and weight loss to try before starting on any medications. She will be discharged home. She will follow up with her primary as needed. Job ID: [id number]
== END 2020-01-30 17:55 | disposition home or self-care (01) ==
LOC: ERS 15:35 → 2SE 22:28
PROVIDERS: ADMIT Internal Medicine; ATTEND Internal Medicine
DX: R07.89 Other chest pain (principal); K76.0 Fatty (change of) liver, not elsewhere classified; I72.2 Aneurysm of renal artery; G89.29 Other chronic pain; M54.9 Dorsalgia, unspecified; R73.03 Prediabetes; E66.9 Obesity, unspecified; Z68.36 Body mass index [BMI] 36.0-36.9, adult; Z79.899 Other long term (current) drug therapy
CPT/HCPCS: 71045; 71046; 71275; 72191; 74175; 78227; 80053; 81003; 82550; 82553; 83690; 83735; 83880; 84484 ×4; 85025; 93005 ×2; 94760 ×3; 96361 ×3; 96374; 96375 ×2; 96376 ×2; 97139 ×2; 99285; A9537; G0378 ×3; 36415; 84443; 93010; C9113; J2270; J2405; J3010

== ENCOUNTER 2020-09-02 19:25 | Observation (INO) | payer MEDICARE ==
--- NOTE | 2020-09-02 19:48 | RAD ---
XR Chest 1 View Portable HISTORY: Dizziness, feels like heart is skipping beats. COMPARISON: 09/02/2020 FINDINGS: The heart size is normal. The lungs are well expanded without focal areas of consolidation, pneumothorax or pleural effusions. There are postop changes of bilateral rotator cuff repair. IMPRESSION: No radiographic evidence of acute cardiopulmonary process.
[2020-09-02 20:00] LABS: #Basophils 0.1 thou/uL (0.0-0.2); #Eosinphils 0.2 thou/uL (0.0-0.7); #Monocytes 0.5 thou/uL (0.11-0.59); #Neutrophils 3.1 thou/uL (1.40-6.50); %Basophils 1.4 % (0.0-1.0); %Eosinophils 2.7 % (0.0-10.0); %Monocytes 8.5 % (0.0-10.0); %Neutrophils 53.4 % (42.0-75.0); Hemoglobin 14.9 g/dL (12.0-16.0); Mean Corpuscular HGB CONC 34.5 g/dL (32.0-36.0); Mean Platelet Volume 7.5 fL (7.4-10.4); Platelet Count 183 thou/uL (130-400); RBC Distribution Width 11.8 % (11.5-14.5); Red Blood Cell (RBC) Count 4.26 mill/uL (4.20-5.40); White Blood Cell (WBC) Count 5.8 thou/uL (4.8-10.8)
[2020-09-02 20:20] LABS: ALT (SGPT) 51 U/L (8-55); AST (SGOT) 43 U/L (5-34); Albumin 4.4 g/dL (3.4-4.8); Alkaline Phosphatase 99 U/L (40-110); Anion Gap 16 mmol/L (10-20); BUN (Urea Nitrogen) 10 mg/dL (9.8-20.1); Bilirubin, Total 0.3 mg/dL (0.2-1.2); CK (CPK) 158 U/L (29-168); Calc. Creatinine Clearance 0 mL/min (70-130); Calcium 9.3 mg/dL (7.8-10.44); Carbon Dioxide 27 mmol/L (23-31); Chloride 104 mmol/L (98-107); Globulin 3.3 g/dL (2.4-3.5); Glucose 92 mg/dL (83-110); Lipase 59 U/L (8-78); Potassium 3.7 mmol/L (3.5-5.1); Protein, Total 7.7 g/dL (6.0-8.3); Sodium 143 mmol/L (136-145)
[2020-09-02] MEDS ORDERED: Aspirin Chewable 81 MG TAB ONE (22:59)
[2020-09-02] MEDS ORDERED: Acetaminophen 500 MG TAB ONE (22:59)
[2020-09-03 00:15] LABS: Bacteria/HPF None Seen HPF (None Seen); Bilirubin Negative (Negative); Blood, Urine Negative (Negative); Clarity Clear (Clear); Glucose, Urine (Dipstick) Normal (Negative); Ketone, Urine Negative (Negative); Leukocyte 250 Leu/uL (Negative); Nitrite Negative (Negative); Protein, Urine (Dipstick) Negative (Neg-Trace); RBC/HPF 0-3 HPF (0-3); Squamous Epithelial 0-3 HPF (0-3); Urobilinogen Normal mg/dL (Less than 2)
[2020-09-03] MEDS ORDERED: cefTRIAXone\\ROCEPHIN 1 GM in Sodium Chloride 0.9% 100 ML IVPB SCH ×2 (00:45→21:00)
[2020-09-03 01:30] LABS: Troponin I 0.028 ng/mL (< 0.028)
[2020-09-03] MEDS ORDERED: Guaifenesin DM 100-10/5 ML UDCUP PO PRN (02:41)
[2020-09-03] MEDS ORDERED: cloNIDine 0.1 MG TAB PO PRN (02:41)
[2020-09-03] MEDS ORDERED: Ondansetron PF 4 MG/2 ML Vial IVP PRN (02:41)
[2020-09-03] MEDS ORDERED: Morphine 2 MG/ML VIAL SLOW IVP PRN (02:41)
[2020-09-03] MEDS ORDERED: Promethazine HCl 12.5 MG in Sodium Chloride 0.9% 50 ML IVPB PRN (02:41)
[2020-09-03] MEDS ORDERED: HYDROcodone/Acetaminophen 5/325 mg Tablet PO PRN (02:41)
[2020-09-03] MEDS ORDERED: Labetalol HCl 100 MG/20 ML VIAL SLOW IVP PRN (02:41)
[2020-09-03] MEDS ORDERED: hydrALAZINE 20 MG/ML VIAL SLOW IVP PRN (02:41)
[2020-09-03] MEDS ORDERED: Acetaminophen 325 MG TAB PO PRN (02:41)
[2020-09-03] MEDS ORDERED: Electrolyte Replacement Protocol 1 EACH FS SCH (02:45)
--- NOTE | 2020-09-03 02:45 | PDOC.HHP ---
Hospitalist HPI - History of Present Illness Presyncope, palpitations History of Present Illness: Patient is a 70 year old female with PMH prediabetes, chronic back pain who presents to ED for palpitaitons and presyncope, patient reports that today while seated she developed a few seconds of heart skipping beats, dizziness, lightheadedness, lasting a few seconds. She denies chest pain/shortness of breath, no LOC or head injury. Labs unremarkable, EKG w/ sinus tachycardia with no ST elevations, UA w/ UTI, patient admitted for further workup and care. Hospitalist ROS - Review of Systems Constitutional: reports: weakness, malaise. denies: fever, chills, sweats, other Eyes: denies: pain, vision change, conjunctivae inflammation, eyelid inflammation, redness, other ENT: denies: ear pain, ear discharge, nose pain, nose discharge, nose congestion, mouth pain, mouth swelling, throat pain, throat swelling, other Respiratory: denies: cough, dry, shortness of breath, hemoptysis, SOB with excertion, pleuritic pain, sputum, wheezing, other Cardiovascular: reports: palpitations. denies: chest pain, orthopnea, paroxysmal noc. dyspnea, edema, light headedness, other Gastrointestinal: denies: nausea, vomiting, abdominal pain, diarrhea, constipation, melena, hematochezia, other Genitourinary: denies: dysuria, frequency, incontinence, hematuria, retention, other Musculoskeletal: denies: neck pain, shoulder pain, arm pain, back pain, hand pain, leg pain, foot pain, other Skin: denies: rash, lesions, faizan, bruising, other Neurological: denies: weakness, numbness, incoordination, change in speech, confusion, seizures, other All other systems reviewed; all pertinent +/- noted in HPI/Subj - Medication Medications: reviewed Hospitalist History - Past Medical History Other Medical History: back pain, chronic R KIDNEY ANEURSYM, HERNIATED DISK, SPINAL STENOSIS, PRE- DIABETIC, GUILLAN BARRE - Past Surgical History Other Surgical History: hysterectomy R ROTATOR CUFF REPAIR, L ROTATOR CUFF AND TENDON REPAI, TUBAL LIGATION - Family History Family History: reports: no pertinent history - Social History Smoking Status: Never smoker Alcohol: reports: None Drugs: reports: none - Exam General Appearance: NAD, awake alert Eye: PERRL, anicteric sclera ENT: normocephalic atraumatic, no oropharyngeal lesions, moist mucosa Neck: supple, symmetric, no JVD, no thyromegaly, no lymphadenopathy, no carotid bruit Heart: RRR, no murmur, no gallops, no rubs, normal peripheral pulses Respiratory: CTAB, no wheezes, no rales, no ronchi, normal chest expansion, no tachypnea, normal percussion Gastrointestinal: soft, non-tender, non-distended, normal bowel sounds, no palpable masses, no hepatomegaly, no splenomegaly, no bruit Extremities: no cyanosis, no clubbing, no edema Skin: normal turgor, no lesions, no rashes Neurological: cranial nerve grossly intact, normal sensation to touch, no weakness, no focal deficits, no new deficit Musculoskeletal: normal tone, normal strength, no muscle wasting Psychiatric: normal affect, normal behavior, A&O x 3 Hospitalist Results - Labs Result Diagrams: 09/02/20 19:49 09/02/20 19:49 Lab results: WBC 5.8 thou/uL (4.8-10.8) 09/02/20 19:49 Hgb 14.9 g/dL (12.0-16.0) 09/02/20 19:49 Hct 43.2 % (36.0-47.0) 09/02/20 19:49 MCV 101.0 fL (78.0-98.0) H 09/02/20 19:49 Plt Count 183 thou/uL (130-400) 09/02/20 19:49 Neutrophils % 53.4 % (42.0-75.0) 09/02/20 19:49 Sodium 143 mmol/L (136-145) 09/02/20 19:49 Potassium 3.7 mmol/L (3.5-5.1) 09/02/20 19:49 Chloride 104 mmol/L (98-107) 09/02/20 19:49 Carbon Dioxide 27 mmol/L (23-31) 09/02/20 19:49 BUN 10 mg/dL (9.8-20.1) 09/02/20 19:49 Creatinine 0.69 mg/dL (0.6-1.1) 09/02/20 19:49 Glucose 92 mg/dL (83-110) 09/02/20 19:49 Calcium 9.3 mg/dL (7.8-10.44) 09/02/20 19:49 Total Bilirubin 0.3 mg/dL (0.2-1.2) 09/02/20 19:49 AST 43 U/L (5-34) H 09/02/20 19:49 ALT 51 U/L (8-55) 09/02/20 19:49 Alkaline Phosphatase 99 U/L (40-110) 09/02/20 19:49 Creatine Kinase 158 U/L (29-168) 09/02/20 19:49 Troponin I 0.028 ng/mL (< 0.028) 09/03/20 00:55 Serum Total Protein 7.7 g/dL (6.0-8.3) 09/02/20 19:49 Albumin 4.4 g/dL (3.4-4.8) 09/02/20 19:49 Lipase 59 U/L (8-78) 09/02/20 19:49 Urine Ketones Negative mg/dL (Negative) 09/03/20 00:02 Urine Blood Negative (Negative) 09/03/20 00:02 Urine Nitrite Negative (Negative) 09/03/20 00:02 Ur Leukocyte Esterase 250 Anabel/uL (Negative) A 09/03/20 00:02 Urine RBC 0-3 HPF (0-3) 09/03/20 00:02 Urine WBC 11-20 HPF (0-3) A 09/03/20 00:02 Ur Squamous Epith Cells 0-3 HPF (0-3) 09/03/20 00:02 Urine Bacteria None Seen HPF (None Seen) 09/03/20 00:02 Additional comment: VITAL SIGNS SatSep 02, 2020 19:26 CANDE Edward, Denisa BP: 162/61 MAP: 97 Pulse: 101 Resp: 18 Temp: 98.8 (Oral) Pain: 0 O2 sat: 97 on (Room Air) Time: 09/02/2020 19:26. XR Chest 1 View Portable Observe DT: SatSep 02, 2020 19:32 CXRP XR Chest 1 View Portable HISTORY: Dizziness, feels like heart is skipping beats. COMPARISON: 09/02/2020 FINDINGS: The heart size is normal. The lungs are well expanded without focal areas of consolidation, pneumothorax or pleural effusions. There are postop changes of bilateral rotator cuff repair. IMPRESSION: No radiographic evidence of acute cardiopulmonary process. - EKG Interpretation EKG: sinus tachycardia [address] elevations Hospitalist H&P A/P - Plan Plan: Patient is a 70 year old female with PMH prediabetes, chronic back pain who presents to ED for palpitaitons and presyncope. # palpitations # presyncope # UTI developed a few seconds of heart skipping beats, dizziness, lightheadedness, lasting a few seconds. She denies chest pain/shortness of breath, no LOC or head injury. Labs unremarkable, EKG w/ sinus tachycardia with no ST elevations, UA w/ UTI, patient admitted for further workup and care. - admit to floor - monitor on telemetry - echo reviewed from 02/05, some valve disease, diastolic dysfunction, EF 50-55% - ceftriaxone, urine culture - orthostatic - pt/ot - consider us carotid if not improved w/ abx # prediabetes - monitor and SSI
[2020-09-03] MEDS ORDERED: Dextrose 5% in Water 1,000 ML IV PRN (03:08)
[2020-09-03] MEDS ORDERED: Dextrose 50% Abboject 50 ML SYRINGE SLOW IVP PRN (03:08)
[2020-09-03] MEDS ORDERED: HumaLOG 300 UNITS/3 ML VIAL SC PRN (03:08)
[2020-09-03] MEDS ORDERED: Sodium Chloride 0.9% 1,000 ML IV SCH (03:15)
[2020-09-03 03:42] VITALS: BMI 35.9
[2020-09-03 04:37] LABS: #Basophils 0.1 thou/uL (0.0-0.2); #Eosinphils 0.2 thou/uL (0.0-0.7); #Lymphocytes 2.2 thou/uL (1.20-3.40); #Monocytes 0.5 thou/uL (0.11-0.59); #Neutrophils 3.2 thou/uL (1.40-6.50); %Basophils 0.8 % (0.0-1.0); %Lymphocytes 35.7 % (21.0-51.0); %Monocytes 7.7 % (0.0-10.0); %Neutrophils 52.8 % (42.0-75.0); Hemoglobin 14.3 g/dL (12.0-16.0); Mean Corpuscular HGB CONC 34.6 g/dL (32.0-36.0); Mean Corpuscular Hemoglobin 35.1 pg (27.0-31.0); Mean Platelet Volume 7.7 fL (7.4-10.4); Platelet Count 164 thou/uL (130-400); Red Blood Cell (RBC) Count 4.07 mill/uL (4.20-5.40); White Blood Cell (WBC) Count 6.1 thou/uL (4.8-10.8)
[2020-09-03 04:55] LABS: Anion Gap 13 mmol/L (10-20); BUN (Urea Nitrogen) 8 mg/dL (9.8-20.1); Calc. Creatinine Clearance 109 mL/min (70-130); Calcium 8.9 mg/dL (7.8-10.44); Carbon Dioxide 24 mmol/L (23-31); Chloride 106 mmol/L (98-107); Glucose 105 mg/dL (83-110); Magnesium 2.3 mg/dL (1.6-2.6); Potassium 3.2 mmol/L (3.5-5.1); Sodium 140 mmol/L (136-145)
[2020-09-03 04:59] LABS: Troponin I Less than 0.010 ng/mL (< 0.028)
[2020-09-03] MEDS ORDERED: Polyethylene Glycol 3350 17 GM Packet PO SCH (09:00)
[2020-09-03] MEDS ORDERED: Famotidine 20 MG TAB PO SCH (09:00)
[2020-09-03] MEDS ORDERED: Heparin 5,000 UNITS/ML VIAL SC SCH (09:00)
[2020-09-03 10:58] LABS: SARS-CoV-2 PCR by NAA Not Detected (NotDetected)
[2020-09-03] MEDS ORDERED: Potassium Chloride 20 MEQ TAB PO SCH (11:15)
[2020-09-03 11:41] VITALS: TEMP 97.9
[2020-09-03 12:15] LABS: Hemoglobin A1c 5.4 % (4.0-6.0)
--- NOTE | 2020-09-03 12:59 | PDOC.DS.DS ---
Provider - Provider Date of Admission: 09/03/20 00:46 Date of Discharge: 09/03/20 Admitting Provider: Apollo Barahona MD Primary Care Physician: Jose Villasenor MD Course - Hospital Course Hospital Course: Discharge Diagnoses: Palpitations/Dizziness UTI Hypokalemia Aortic regurgitation Right renal artery aneurysm Brief HPI: This is a 70 year old female with PMH prediabetes, chronic back pain who presents to ED for palpitaitons and presyncope. The patient stated she was sitting in her chair when she all of a sudden developed palpitations, dizziness and lightheadedness. She stated this lasted a few seconds. Shas was slightly diaphoretic. She denied any chest pain. EKG showed sinus tachycardia. UA showed 11-20 WBC. The patient was medically further work-up. Hospital Course: Palpitations/Dizziness UTI: The patient was monitored on telemetry and remained in sinus rhythm. Orthostatics were negative. She was started on IV ceftriaxone empirically for a possible UTI. She denies dysuria, but does report some flank pain on the left side which she thought was from an old herniated disc. Urine culture is still pending. The patient ambulated with physical therapy and had no recurrence of palpitations or dizziness at the time of discharge. She has had extensive cardiac workup for chest pain in 01/2020 including a normal nuclear stress test and an ECHO which showed moderate aortic regurgitation and mild diastolic CHF. Therefore repeat cardiac workup was not done. She does follow up with a veterinary toxicologist for her renal artery aneurysm and I advised her to follow up with one as an outpatient. She will continue antibiotics for six more days in the event this may have been a mild pyelonephritis. Hypokalemia: potassium was 3.2 which was replaced at the time of discharge. She was advised to repeat potassium level in a week. Chronic back pain from herniated disc: Patient reports back pain which is worse while laying down. She does have point tenderness to palpation in the left paraspinal area. She will be discharged with a lidocaine patch . Pertinent Studies: Chest X ray: no acute disease Resuscitation Status: 09/03/20 02:41 Resuscitation Status Routine Resuscitation Status: FULL: Full Resuscitation - Labs Lab Results: 09/03/20 04:05 09/03/20 04:05 Abnormal Lab Results - Last 48 hrs 09/02/20 19:49: AST 43 H 09/02/20 19:49: MCV 101.0 H, MCH 35.0 H, Basophils % 1.4 H 09/03/20 00:02: Ur Leukocyte Esterase 250 A, Urine WBC 11-20 A 09/03/20 04:05: Potassium 3.2 L, BUN 8 L 09/03/20 04:05: RBC 4.07 L, MCV 102.0 H, MCH 35.1 H - Physical Exam Vitals: Vital Signs (12 hours) Temp Pulse Resp BP BP BP Pulse Ox 09/03/20 11:10 97.9 F 76 18 119/58 L 100 09/03/20 07:24 97.8 F 71 18 118/57 L 114/57 L 100 Weight Weight 183 lb 9.6 oz Physical Exam: The patient was seen and examined on the day of discharge. General: patient is morbidly obese CVS: RRR, no murmurs, rubs, gallops Lungs: CTAB Abdomen: +BS, soft, nontender, nondistended Extremities: no edema Musculoskeletal: point tenderness to palpation left flank/paraspinal area Problem - Time spent with Patient (mins): 35 Plan - Discharge Medications Prescriptions: Cefdinir 300 mg PO Q12HR #12 capsule Lidocaine 5% Patch [Lidoderm 5% Patch] 1 patch TD DAILY #30 patch Home Medications: Medication Instructions Recorded Confirmed Type diphenhydrAMINE HCl [Benadryl 25 mg PO PRN PRN 01/22/20 09/03/20 History Allergy] Calcium Carbonate [Tums] 1,000 mg PO PRN PRN 09/03/20 09/03/20 History Cefdinir 300 mg PO Q12HR #12 capsule 09/03/20 Rx Lidocaine 5% Patch [Lidoderm 5% 1 patch TD DAILY #30 patch 09/03/20 Rx Patch] Allergies: No Known Allergies Allergy (Verified 09/03/20 03:37) - Discharge Instructions Discharge Instructions:: You presented after almost passing out. You did have a possible urine infection. Take cefdinir for six more days to complete a seven day course of antibiotics. You did not have diabetes, your hemoglobin A1C was 5.4. Your potassium was slightly low. You can eat more fruit. Have this rechecked in a week. Activity:: Activity as Tolerated Nourishment:: Heart Healthy Diet - Follow up Plan Referrals: Jose Villasenor MD [Primary Care Provider] - 7 Days (Please call to make an appointment. ) Quality - Care Measures CORE MEASURES:: N/A
[2020-09-03 14:49] VITALS: BP 126/59
== END 2020-09-03 13:54 | disposition home or self-care (01) ==
LOC: ERS 19:25 → 2NO 09-03 00:46
PROVIDERS: ADMIT Internal Medicine; ATTEND Internal Medicine
DX: R55 Syncope and collapse (principal); R00.2 Palpitations; R42 Dizziness and giddiness; N39.0 Urinary tract infection, site not specified; E87.6 Hypokalemia; I35.1 Nonrheumatic aortic (valve) insufficiency; I72.2 Aneurysm of renal artery; R73.03 Prediabetes; G89.29 Other chronic pain; M54.9 Dorsalgia, unspecified; G61.0 Guillain-Barre syndrome; I50.30 Unspecified diastolic (congestive) heart failure; Z20.822 Contact with and (suspected) exposure to COVID-19
CPT/HCPCS: 71045; 80048; 80053; 82550; 82962; 83036; 83690; 83735; 84484 ×3; 85025 ×2; 87077; 87086; 93005; 97139 ×2; U0003; U0005; 36415; 36416; 81003; 81015; 87635; 96374; G0378; J0696; J1644; J3490

== ENCOUNTER 2020-11-03 09:32 | Outpatient (CLI) | payer MEDICARE ==
[2020-11-03] MEDS ORDERED: Iopamidol-370 76% 500 ML 1 ML ONE (14:46)
== END 2020-11-03 09:33 | disposition home or self-care (01) ==
LOC: BICCT 09:32
PROVIDERS: ATTEND Internal Medicine Cardiovascular Disease
DX: I72.2 Aneurysm of renal artery (principal)
CPT/HCPCS: 74175; 82565; Q9967

== ENCOUNTER 2021-01-10 14:17 | Observation (INO) | payer MEDICARE ==
[2021-01-10 15:01] LABS: #Basophils 0.1 thou/uL (0.0-0.2); #Eosinphils 0.1 thou/uL (0.0-0.7); #Lymphocytes 2.2 thou/uL (1.20-3.40); #Monocytes 0.3 thou/uL (0.11-0.59); #Neutrophils 2.9 thou/uL (1.40-6.50); %Basophils 1.4 % (0.0-1.0); %Eosinophils 2.5 % (0.0-10.0); %Lymphocytes 39.5 % (21.0-51.0); %Monocytes 5.3 % (0.0-10.0); %Neutrophils 51.2 % (42.0-75.0); Hemoglobin 14.7 g/dL (12.0-16.0); Mean Corpuscular HGB CONC 34.6 g/dL (32.0-36.0); Mean Corpuscular Hemoglobin 34.9 pg (27.0-31.0); Mean Platelet Volume 7.8 fL (7.4-10.4); Platelet Count 180 thou/uL (130-400); RBC Distribution Width 11.9 % (11.5-14.5); Red Blood Cell (RBC) Count 4.22 mill/uL (4.20-5.40); White Blood Cell (WBC) Count 5.6 thou/uL (4.8-10.8)
[2021-01-10 15:24] LABS: ALT (SGPT) 38 U/L (8-55); AST (SGOT) 31 U/L (5-34); Albumin 4.1 g/dL (3.4-4.8); Alkaline Phosphatase 101 U/L (40-110); Anion Gap 12 mmol/L (10-20); BUN (Urea Nitrogen) 13 mg/dL (9.8-20.1); Bilirubin, Total 0.3 mg/dL (0.2-1.2); Calc. Creatinine Clearance 0 mL/min (70-130); Carbon Dioxide 24 mmol/L (23-31); Chloride 108 mmol/L (98-107); Globulin 2.8 g/dL (2.4-3.5); Glucose 134 mg/dL (83-110); Lipase 41 U/L (8-78); Potassium 3.8 mmol/L (3.5-5.1); Protein, Total 6.9 g/dL (5.8-8.1); Sodium 140 mmol/L (136-145)
[2021-01-10] MEDS ORDERED: Potassium Chloride 20 MEQ TAB ONE (16:07)
[2021-01-10] MEDS ORDERED: Aspirin Chewable 81 MG TAB ONE (16:34)
[2021-01-10] MEDS ORDERED: Acetaminophen 325 MG TAB PO PRN (17:03)
[2021-01-10] MEDS ORDERED: Nitroglycerin 0.4 MG TAB (25 Tab Bottle) SL PRN (17:03)
[2021-01-10] MEDS ORDERED: Ondansetron PF 4 MG/2 ML Vial IVP PRN (17:03)
[2021-01-10] MEDS ORDERED: Ondansetron ODT 4 MG TAB PO PRN (17:03)
[2021-01-10] MEDS ORDERED: Acetaminophen 650 MG Suppository PR PRN (17:03)
[2021-01-10] MEDS ORDERED: Aspirin 325 MG TAB PO SCH (17:15)
[2021-01-10 18:22] LABS: Troponin I Less than 0.010 ng/mL (< 0.028)
[2021-01-10 21:28] LABS: SARS-CoV-2 PCR by NAA Not Detected (NotDetected)
[2021-01-10 21:43] LABS: Troponin I Less than 0.010 ng/mL (< 0.028)
[2021-01-10 22:39] LABS: Hemoglobin A1c 5.5 % (4.0-6.0)
[2021-01-11 05:10] LABS: #Eosinphils 0.2 thou/uL (0.0-0.7); #Lymphocytes 2.1 thou/uL (1.20-3.40); #Monocytes 0.4 thou/uL (0.11-0.59); #Neutrophils 2.7 thou/uL (1.40-6.50); %Basophils 0.7 % (0.0-1.0); %Eosinophils 3.9 % (0.0-10.0); %Monocytes 7.5 % (0.0-10.0); %Neutrophils 48.9 % (42.0-75.0); Hemoglobin 14.2 g/dL (12.0-16.0); Mean Corpuscular HGB CONC 33.7 g/dL (32.0-36.0); Mean Corpuscular Hemoglobin 34.6 pg (27.0-31.0); Mean Platelet Volume 7.9 fL (7.4-10.4); Platelet Count 167 thou/uL (130-400); RBC Distribution Width 12.1 % (11.5-14.5); Red Blood Cell (RBC) Count 4.11 mill/uL (4.20-5.40); White Blood Cell (WBC) Count 5.4 thou/uL (4.8-10.8)
[2021-01-11 05:38] LABS: Anion Gap 11 mmol/L (10-20); BUN (Urea Nitrogen) 11 mg/dL (9.8-20.1); Calc. Creatinine Clearance 108 mL/min (70-130); Calcium 8.8 mg/dL (7.8-10.44); Carbon Dioxide 25 mmol/L (23-31); Cardiac Risk 2.6 (Less than 4.5); Chloride 108 mmol/L (98-107); Cholesterol 140 mg/dl (< 200 Desired); Glucose 104 mg/dL (83-110); HDL Cholesterol 54 mg/dL (>60 Neg Risk); LDL Cholesterol, Calculated 70 mg/dL; Potassium 3.6 mmol/L (3.5-5.1); Sodium 140 mmol/L (136-145); Triglycerides 82 mg/dL (Less than 150)
[2021-01-11] MEDS ORDERED: Aspirin Chewable 81 MG TAB PO SCH (09:00)
[2021-01-11 12:31] VITALS: BP 111/51; TEMP 97.7
== END 2021-01-11 13:27 | disposition home or self-care (01) ==
LOC: ERS 14:17 → ERHOLD 16:27 → 2SW 18:57
PROVIDERS: ADMIT Internal Medicine; ATTEND Internal Medicine
DX: R07.89 Other chest pain (principal); I72.2 Aneurysm of renal artery; R73.03 Prediabetes; G89.29 Other chronic pain; M54.5 Low back pain; I50.32 Chronic diastolic (congestive) heart failure; I08.3 Combined rheumatic disorders of mitral, aortic and tricuspid valves; K76.0 Fatty (change of) liver, not elsewhere classified; G61.0 Guillain-Barre syndrome; M48.00 Spinal stenosis, site unspecified; E66.9 Obesity, unspecified; Z68.35 Body mass index [BMI] 35.0-35.9, adult; Z20.822 Contact with and (suspected) exposure to COVID-19
CPT/HCPCS: 71045; 80048; 80053; 80061; 83036; 83690; 84484 ×2; 85025 ×2; 93005; 94760 ×2; 99285; G0378 ×3; U0003; U0005; 36415; 87635

== ENCOUNTER 2021-09-20 12:49 | Outpatient (CLI) | payer MEDICARE | END 2021-09-20 12:50 | disposition home or self-care (01) | LOC: BICULT 12:49 | PROVIDERS: ATTEND Family Medicine | DX: R94.5 Abnormal results of liver function studies (principal); Z12.31 Encounter for screening mammogram for malignant neoplasm of breast | CPT/HCPCS: 76705; 77063; 77067 ==

== ENCOUNTER 2022-01-26 07:37 | Outpatient (CLI) | payer MEDICARE ==
[2022-01-26] MEDS ORDERED: Iopamidol 370 76% 100 ML VIAL ONE (11:07)
== END 2022-01-26 07:38 | disposition home or self-care (01) ==
LOC: CT 07:37
PROVIDERS: ATTEND Internal Medicine Cardiovascular Disease
DX: I72.2 Aneurysm of renal artery (principal)
CPT/HCPCS: 74175; 82565; Q9967

== ENCOUNTER 2022-08-12 11:05 | Emergency (ER) | payer MEDICARE, OTHER ==
[2022-08-12] MEDS ORDERED: Aspirin Chewable 81 MG TAB ONE (11:48)
[2022-08-12] MEDS ORDERED: Morphine 4 MG/ML VIAL ONE (11:48)
[2022-08-12 11:52] LABS: #Lymphocytes 1.1 thou/uL (1.20-3.40); #Monocytes 0.2 thou/uL (0.11-0.59); #Neutrophils 4.9 thou/uL (1.40-6.50); %Basophils 0.6 % (0.0-1.0); %Eosinophils 0.2 % (0.0-10.0); %Lymphocytes 17.8 % (21.0-51.0); %Monocytes 3.7 % (0.0-10.0); %Neutrophils 77.7 % (42.0-75.0); Hemoglobin 16.7 g/dL (12.0-16.0); Mean Corpuscular HGB CONC 33.9 g/dL (32.0-36.0); Mean Corpuscular Hemoglobin 34.9 pg (27.0-31.0); Platelet Count 176 10x3/uL (130-400); RBC Distribution Width 11.8 % (11.5-14.5); Red Blood Cell (RBC) Count 4.77 mill/uL (4.20-5.40); White Blood Cell (WBC) Count 6.2 10x3/uL (4.8-10.8)
[2022-08-12] MEDS ORDERED: Ondansetron PF 4 MG/2 ML Vial ONE (11:54)
[2022-08-12] MEDS ORDERED: Iopamidol-370 76% 500 ML 1 ML ONE (11:55)
[2022-08-12 12:01] LABS: ALT (SGPT) 60 U/L (8-55); AST (SGOT) 48 U/L (5-34); Albumin 4.6 g/dL (3.4-4.8); Alkaline Phosphatase 77 U/L (40-110); Anion Gap 16 mmol/L (10-20); BUN (Urea Nitrogen) 8 mg/dL (9.8-20.1); Bilirubin, Total 0.8 mg/dL (0.2-1.2); CK (CPK) 53 U/L (29-168); Calc. Creatinine Clearance 0 mL/min (70-130); Calcium 9.6 mg/dL (7.8-10.44); Carbon Dioxide 26 mmol/L (23-31); Chloride 101 mmol/L (98-107); Estimated GFR 88; Globulin 3.3 g/dL (2.4-3.5); Glucose 147 mg/dL (83-110); Lipase 32 U/L (8-78); Potassium 3.7 mmol/L (3.5-5.1); Protein, Total 7.9 g/dL (5.8-8.1); Sodium 139 mmol/L (136-145)
[2022-08-12 12:32] LABS: CKMB 0.7 ng/mL (0-6.6)
[2022-08-12 14:31] LABS: Troponin I 0.018 ng/mL (< 0.028)
== END 2022-08-12 14:54 | disposition home or self-care (01) ==
LOC: ERS 11:05
DX: R10.9 Unspecified abdominal pain (principal)
CPT/HCPCS: 36415; 71045; 71275; 74177; 80053; 82550; 82553; 83690; 84484; 85025; 93005; 96374; 96375; J2270; J2405; Q9967

== ENCOUNTER 2023-06-21 10:46 | Outpatient (CLI) | payer OTHER | END 2023-06-21 10:47 | disposition home or self-care (01) | LOC: BICULT 10:46 | PROVIDERS: ATTEND Physician Assistant Medical | DX: K21.9 Gastro-esophageal reflux disease without esophagitis (principal); K76.0 Fatty (change of) liver, not elsewhere classified; R74.8 Abnormal levels of other serum enzymes; K86.2 Cyst of pancreas | CPT/HCPCS: 76705 ==

== ENCOUNTER 2025-03-29 14:52 | Emergency (ER) | payer OTHER ==
[2025-03-29 18:19] LABS: #Basophils 0.04 10x3/uL (0.0-0.2); #Eosinophils 0.18 10x3/uL (0.0-0.7); #Monocytes 0.46 10x3/uL (0.11-0.59); #Neutrophils 3.44 10x3/uL (1.40-6.50); %Basophils 0.6 % (0.0-1.0); %Eosinophils 2.8 % (0.0-10.0); %Lymphocytes 35.8 % (21.0-51.0); %Monocytes 7.2 % (0.0-10.0); %Neutrophils 53.4 % (42.0-75.0); Hematocrit 45.8 % (36.0-47.0); Hemoglobin 15.3 g/dL (12.0-16.0); Mean Corpuscular Hemoglobin 34.1 pg (27.0-31.0); Mean Corpuscular Volume 102.0 fL (78.0-98.0); Platelet Count 125 10x3/uL (130-400); Red Blood Cell (RBC) Count 4.49 mill/uL (4.20-5.40); White Blood Cell (WBC) Count 6.43 10x3/uL (4.8-10.8)
[2025-03-29 18:29] LABS: INR-International Normal Ratio 1.3; Prothrombin Time 16.2 sec (12.0-14.7)
[2025-03-29 18:30] LABS: PTT 36.7 sec (22.9-36.1)
[2025-03-29 19:02] LABS: ALT (SGPT) 150 U/L (Less than 34); AST (SGOT) 133 U/L (11-34); Albumin 4.0 g/dL (3.1-4.5); Alkaline Phosphatase 97 U/L (40-110); Anion Gap 17 mmol/L (10-20); BUN (Urea Nitrogen) 10 mg/dL (9.8-20.1); Bilirubin, Total 0.4 mg/dL (0.3-1.2); Calc. Creatinine Clearance 0 mL/min (70-130); Calcium 9.4 mg/dL (7.8-10.44); Carbon Dioxide 24 mmol/L (23-31); Chloride 106 mmol/L (98-107); Globulin 3.7 g/dL (2.4-3.5); Glucose 83 mg/dL (83-110); Potassium 3.7 mmol/L (3.5-5.1); Sodium 143 mmol/L (136-145)
[2025-03-29] MEDS ORDERED: Acetaminophen 325 MG TAB ONE (19:46)
== END 2025-03-29 20:34 | disposition home or self-care (01) ==
LOC: ERS 14:52
DX: M25.562 Pain in left knee (principal)
CPT/HCPCS: 36415; 80053; 85025; 85610; 85730

== ENCOUNTER 2025-04-15 14:46 | Outpatient (CLI) | payer OTHER | END 2025-04-15 14:47 | disposition home or self-care (01) | LOC: ULT 14:46 | PROVIDERS: ATTEND Internal Medicine Cardiovascular Disease | DX: R42 Dizziness and giddiness (principal); R55 Syncope and collapse | CPT/HCPCS: 93880 ==